=== PATIENT | male | born 1960 | race Caucasian/White ===

== ENCOUNTER 2019-04-08 19:00 | Observation (INO) | payer OTHER ==
[~2019-04-08] VITALS: Ht 193 cm; Wt 80.1 kg
[~2019-04-08 19:00] MED LIST: ASPI325T17 PO; ATOR40TA PO; ENAL2.5T PO; ESOM40CA; METO-93 PO; PRAS10TA4 PO
[2019-04-08 19:36] LABS: ALANINE AMINOTRANSFERASE 30 U/L (12-78); ANION GAP 3 mmol/L (5-15); CALCIUM 10.4 mg/dL (8.5-10.1); CHLORIDE 107 mmol/L (98-107); CREATININE 1.24 mg/dL (0.7-1.3)
[2019-04-08 19:39] LABS: ALKALINE PHOSPHATASE 83 U/L (45-117); BILIRUBIN,TOTAL 0.6 mg/dL (0.2-1.0); TOTAL PROTEIN 7.3 g/dL (6.4-8.2); TROPONIN I < 0.015 ng/mL (0.000-0.045)
[2019-04-08 19:46] LABS: BASOPHILS # (AUTO) 0.05 x10^3/uL (0-0.1); BASOPHILS % (AUTO) 1 % (0-1); EOSINOPHILS # (AUTO) 0.15 x10^3/uL (0-0.4); EOSINOPHILS % (AUTO) 2 % (1-7); LYMPHOCYTES # (AUTO) 2.44 x10^3/uL (1-3.4); LYMPHOCYTES % (AUTO) 26 % (22-44); MD NO; MEAN CORPUSCULAR HEMOGLOBIN 29.5 pg (27.5-34.5); MEAN CORPUSCULAR HGB CONC 33.9 g/dL (33.2-36.2); MONOCYTES # (AUTO) 0.76 x10^3/uL (0.2-0.8); MONOCYTES % (AUTO) 8 % (2-9); NEUTROPHILS # (AUTO) 6.16 x10^3/uL (1.8-6.8); NEUTROPHILS % (AUTO) 65 % (42-75); PLATELET COUNT 197 x10^3/uL (130-400); RED BLOOD COUNT 5.33 x10^6/uL (4.38-5.82); RED CELL DISTRIBUTION WIDTH 13.4 % (9.4-14.8)
--- NOTE | 2019-04-08 21:09 | NUR ---
pt to ed from home c/o mid sternal cp that radiates to r chest. intermittent. squeezing. denies sob. did not take anything for pain. hx of stent in lad luna is cards. a&o x4 gcs 15. labs/cxr wnl. rossana lawrence. vss. call hewitt/ at bedside. as
--- NOTE | 2019-04-08 21:09 | NUR ---
assumed care of pt. as
--- NOTE | 2019-04-08 21:43 | NUR ---
pt resting in bed, still awaiting md. perla on monitor, nad. mari ateresa call hewitt in reach. as
--- NOTE | 2019-04-08 21:54 | NUR ---
jourdan in room to deuce cerrato. as
--- NOTE | 2019-04-08 22:10 | NUR ---
report to martha quiroga.
--- NOTE | 2019-04-08 22:11 | NUR ---
received report from SHAN Forte
--- NOTE | 2019-04-08 22:53 | NUR ---
admitting MD at bedside for patient evaluation.
[2019-04-08] MEDS ORDERED: MORPHINE SULFATE 4 MG/ML, 1ML IVPush PRN (23:00)
[2019-04-08] MEDS ORDERED: ONDANSETRON 2MG/ML, 2ML IVPush PRN (23:00)
--- NOTE | 2019-04-08 23:26 | NUR ---
bed assigned. report to SHAN Arora.
[2019-04-08] MEDS ORDERED: POLYETHYLENE GLYCOL 17 GM PACKET PO PRN (23:30)
[2019-04-08] MEDS ORDERED: NITROGLYCERIN 0.4 MG BOTTLE (25 TABS) SL PRN (23:30)
[2019-04-08] MEDS ORDERED: BISACODYL 10 MG SUPP PR PRN (23:30)
[2019-04-08] MEDS ORDERED: morphine SULFATE 10 MG/ML, 1ML IVPush PRN (23:30)
[2019-04-08] MEDS ORDERED: ACETAMINOPHEN 325 MG TABLET PO PRN (23:30)
[2019-04-08] MEDS ORDERED: ONDANSETRON ODT 4 MG PO PRN (23:30)
[2019-04-08 23:50] VITALS: BP 140/82
[2019-04-09] MEDS: SODIUM CHLORIDE FLUSH 10ML SYR IVF SCH ×2 (00:28→08:14)
[2019-04-09] MEDS: HEPARIN 5,000 UNITS/ML, 1ML SQ SCH ×2 (00:28→08:11)
[2019-04-09 02:14] LABS: TROPONIN I < 0.015 ng/mL (0.000-0.045)
[2019-04-09 07:16] LABS: BASOPHILS # (AUTO) 0.02 x10^3/uL (0-0.1); BASOPHILS % (AUTO) 0 % (0-1); EOSINOPHILS # (AUTO) 0.15 x10^3/uL (0-0.4); EOSINOPHILS % (AUTO) 2 % (1-7); LYMPHOCYTES # (AUTO) 1.49 x10^3/uL (1-3.4); LYMPHOCYTES % (AUTO) 21 % (22-44); MD NO; MEAN CORPUSCULAR HEMOGLOBIN 29.5 pg (27.5-34.5); MEAN CORPUSCULAR HGB CONC 33.4 g/dL (33.2-36.2); MEAN CORPUSCULAR VOLUME 88.3 fL (81-97); MEAN PLATELET VOLUME 7.8 fL (7.4-10.4); MONOCYTES # (AUTO) 0.65 x10^3/uL (0.2-0.8); MONOCYTES % (AUTO) 9 % (2-9); NEUTROPHILS # (AUTO) 4.88 x10^3/uL (1.8-6.8); NEUTROPHILS % (AUTO) 68 % (42-75); PLATELET COUNT 171 x10^3/uL (130-400); RED BLOOD COUNT 5.27 x10^6/uL (4.38-5.82); RED CELL DISTRIBUTION WIDTH 13.2 % (9.4-14.8)
[2019-04-09 07:22] LABS: ANION GAP 6 mmol/L (5-15); CALCIUM 8.8 mg/dL (8.5-10.1); CHLORIDE 109 mmol/L (98-107)
[2019-04-09 07:26] LABS: TROPONIN I < 0.015 ng/mL (0.000-0.045)
[2019-04-09 08:09] VITALS: BP 112/73
[2019-04-09 08:36] LABS: CHOL/HDL RATIO 2.2; LDL/HDL RATIO 0.8 (0.5-3.0)
[2019-04-09] MEDS ORDERED: ASPIRIN 81 MG TABLET CHEW PO SCH (09:00)
[2019-04-09] MEDS ORDERED: SENNA/DOCUSATE TABLET PO SCH (09:00)
[2019-04-09] MEDS ORDERED: ENALAPRIL 5MG TABLET PO SCH (09:00)
[2019-04-09 13:54] VITALS: BP 109/72
[2019-04-09] MEDS ORDERED: ATORVASTATIN 40 MG TABLET PO SCH (21:00)
== END 2019-04-09 14:02 | disposition home or self-care (01) ==
LOC: ED 22:20 → INTOOBSV 23:39 → EDIP 23:39 → 5SO 23:42 → DCLOUNGE 04-09 13:59
PROVIDERS: ADMIT Internal Medicine; ATTEND Internal Medicine
DX: R07.89 Other chest pain (principal); I25.118 Atherosclerotic heart disease of native coronary artery with other forms of angina pectoris; K21.9 Gastro-esophageal reflux disease without esophagitis; I25.2 Old myocardial infarction; I10 Essential (primary) hypertension; Z86.718 Personal history of other venous thrombosis and embolism; Z90.5 Acquired absence of kidney; Z95.5 Presence of coronary angioplasty implant and graft; Z79.899 Other long term (current) drug therapy; Z79.82 Long term (current) use of aspirin
CPT/HCPCS: 36415; 71045; 80048; 80053; 80061; 84484; 85025; 93005; 93017; 96372; 99285; G0378; J1644